=== PATIENT | female | born 1985 | race Caucasian/White ===

== ENCOUNTER 2017-01-08 17:13 | Emergency (ER) | payer OTHER ==
[2017-01-08 17:18] VITALS: BP 117/72; PULSE 100; TEMP 97.9; BMI 32.5
--- NOTE | 2017-01-08 19:04 | PDOC ---
History of Present Illness - General Chief Complaint: Vaginal Sxs Stated Complaint: FOREIGN OBJECT STUCK Time Seen by Provider: 01/08/17 18:31 History Source: Patient Exam Limitations: No Limitations - History of Present Illness Travel History: No Initial Comments: 01/08/17 18:49 retained tampon Timing/Duration: reports: constant Quality: reports: mild Past History - Travel Traveled outside of the country in the last 30 days: No Close contact w/someone who was outside of country & ill: No - Past Medical History Allergies/Adverse Reactions: Allergies Allergy/AdvReac Type Severity Reaction Status Date / Time No Known Allergies Allergy Verified 01/08/17 17:14 Home Medications: Ambulatory Orders Cephalexin [Keflex] 500 mg PO BID #14 capsule 11/01/15 Naproxen [Naprosyn -] 500 mg PO BID #14 tablet 11/01/15 HTN: Yes (border line) - Surgical History Abdominal Surgery: Yes - Reproductive History (#): 2 Para: 2 Therapeutic (s) & number: No Spontaneous : 0 - Psycho/Social/Smoking Cessation Hx Anxiety: No Suicidal Ideation: No Smoking Status: No Smoking History: Never smoked Have you smoked in the past 12 months: No Number of Cigarettes Smoked Daily: 0 Information on smoking cessation initiated: No Hx Alcohol Use: No Drug/Substance Use Hx: No Substance Use Type: None Review of Systems - Review of Systems Able to Perform ROS?: Yes Is the patient limited Albanian proficient: Yes Constitutional: Yes: See HPI. No: Symptoms Reported, Chills, Fever HEENTM: No: Symptoms Reported : Yes: See HPI. No: Symptoms Reported, Dysuria, Discharge Integumentary: No: Symptoms Reported All Other Systems: Reviewed and Negative *Physical Exam - Vital Signs Last Vital Signs Temp Pulse Resp BP Pulse Ox 97.9 F 100 H 18 117/72 100 01/08/17 17:15 01/08/17 17:15 01/08/17 17:15 01/08/17 17:15 01/08/17 17:15 - Physical Exam General Appearance: Yes: Nourished, Appropriately Dressed. No: Apparent Distress HEENT: positive: MARI, Normal ENT Inspection, TMs Normal, Pharynx Normal Neck: positive: Supple Respiratory/Chest: positive: Lungs Clear, Normal Breath Sounds Female Pelvic Exam: positive: normal external exam, other (to retain tampons noted in vault, after removal no evidence of abrasion, lesions, or discharge.) Gastrointestinal/Abdominal: positive: Soft. negative: Tender Extremity: positive: Normal Capillary Refill, Normal Inspection Integumentary: positive: Normal Color, Dry, Warm Neurologic: positive: assistant clinical nurse manager II-XII NML intact, Fully Oriented, Alert, Normal Mood/ Affect, Normal Response, Motor Strength 5/5 Progress Note - Progress Note Progress Note: Retain foreign body/tampons to vagina removed without incident Medical Decision Making - Medical Decision Making 01/08/17 19:06 Patient states was intoxicated yesterday and forgot to remove tampon before having sex with her boyfriend. Is unable to remove tampon tonight. Denies fever , abdominal pain or other problems. *DC/Admit/Observation/Transfer Diagnosis at time of Disposition: Retained vaginal foreign body Qualifiers: Encounter type: initial encounter Qualified Code(s): T19.2XXA - Foreign body in vulva and vagina, initial encounter - Discharge Dispostion Disposition: HOME Condition at time of disposition: Stable Admit: No - Patient Instructions Printed Discharge Instructions: DI for Foreign Body in Vagina-Adult - Post Discharge Activity Work/School Note: Back to Work
== END 2017-01-08 20:02 | disposition home or self-care (01) ==
LOC: JERFT 17:13
DX: T19.2XXA Foreign body in vulva and vagina, initial encounter (principal)
CPT/HCPCS: 99281-25

== ENCOUNTER 2019-07-09 16:47 | Emergency (ER) | payer OTHER ==
[2019-07-09 16:56] VITALS: TEMP 99; BMI 33.5
--- NOTE | 2019-07-09 16:57 | PDOC ---
Rapid Medical Evaluation Chief Complaint: Blood Pressure Problem Time Seen by Provider: 07/09/19 16:53 Medical Evaluation: Allergies Allergy/AdvReac Type Severity Reaction Status Date / Time No Known Allergies Allergy Verified 01/08/17 17:14 07/09/19 16:54 Patient c/o: 1 st trimester and went to clinic today and had a n elevated bp, hx of the same w/ prior , no complaints Patient on brief exam: 179/127, lcta, no pedal edema Patient ordered for: labs, urine, Patient to proceed to the ED Discharge Disposition - Diagnosis Elevated blood pressure affecting in first trimester, antepartum - Discharge Dispostion Disposition: HOME Condition at time of disposition: Improved - Prescriptions Prescriptions: Labetalol HCl 100 mg PO BID #10 tablet Pnv No.95/Ferrous Fum/Folic AC [ Vitamin Tablet] 1 each PO DAILY #30 tablet - Referrals - Patient Instructions Printed Discharge Instructions: DI for Pre-eclampsia Additional Instructions: Return to the ED if there is concern for new or worsening symptoms including significant headaches, fainting, vaginal bleeding It is important you followup with your Ob doctor this Sunday for repeat blood pressure. I have sent labetalol 100mg to take twice a day as well as vitamins. You may purchase any other over the counter vitamins if you would prefer. - Post Discharge Activity
--- NOTE | 2019-07-09 17:30 | PDOC ---
History of Present Illness - General Chief Complaint: Blood Pressure Problem Stated Complaint: HYPERTENSION/EVALUATION/+PREG TEST UNK WEEKS Time Seen by Provider: 07/09/19 16:53 - History of Present Illness Initial Comments: 07/09/19 17:30 HPI: 33 y/o F (ectopic s/p surgical prevention) LMP 05/01 presenting from Ob clinic for hypertension. Patient was on OCPs and had a positive home preg test last week and was establishing care today, however was found to be hypertensive and sent to ED for further eval. Patient only reports some morning nausea but denies emesis. Otherwise is without symptoms. Denies fever, chills, chest pain, palpitations, SOB, BLANCO, LH, dysuria. She reports not being on prenatals. She also reports alcohol use and motrin use in the psat 4 weeks. PMHx: as noted above ROS: as noted SHx: Denies tobacco use; occasional alcohol use; no rec drugs Allergies: NKDA ROS: GENERAL/CONSTITUTIONAL: No fever or chills. No weakness. HEAD, EYES, EARS, NOSE AND THROAT: No change in vision. No ear pain or discharge. No sore throat. CARDIOVASCULAR: No chest pain or shortness of breath RESPIRATORY: No cough, wheezing, or hemoptysis. GASTROINTESTINAL: +nausea; no vomiting, diarrhea or constipation. GENITOURINARY: No dysuria, frequency, or change in urination. MUSCULOSKELETAL: No joint or muscle swelling or pain. No neck or back pain. SKIN: No rash NEUROLOGIC: No headache, vertigo, loss of consciousness, or change in strength/ sensation. ENDOCRINE: No increased thirst. No abnormal weight change HEMATOLOGIC/LYMPHATIC: No anemia, easy bleeding, or history of blood clots. ALLERGIC/IMMUNOLOGIC: No hives or skin allergy. PE: GENERAL: Awake, alert, and fully oriented, no acute distress HEAD: No signs of trauma, normocephalic, atraumatic EYES: EOMI, sclera anicteric, conjunctiva clear ENT: Auricles normal inspection, hearing grossly normal, nares patent, oropharynx clear without exudates. Moist mucosa NECK: Normal ROM, no lymphadenopathy LUNGS: No increased work of breathing, symmetrical chest rise, clear to auscultation bilaterally, no wheezes, crackles or rhonchi HEART: Regular rate and rhythm, normal S1 and S2, no murmurs, peripheral pulses 2+ and equal bilaterally. ABDOMEN: Soft, nondistended, nontender, normoactive bowel sounds. No guarding, no rebound. No masses. No CVAT : external gentialia normal, no blood in the vaginal vault, cervical os closed , no CMT or adnexal ttp EXTREMITIES: Normal inspection, Normal range of motion, no edema. No clubbing or cyanosis. NEUROLOGICAL: Cranial nerves II through XII grossly intact. Normal speech, normal gait, no focal sensorimotor deficits SKIN: Warm, Dry, normal turgor, no rashes or lesions noted Past History - Past Medical History Allergies/Adverse Reactions: Allergies Allergy/AdvReac Type Severity Reaction Status Date / Time No Known Allergies Allergy Verified 07/09/19 16:56 Home Medications: Ambulatory Orders Cephalexin [Keflex] 500 mg PO BID #14 capsule 11/01/15 Naproxen [Naprosyn -] 500 mg PO BID #14 tablet 11/01/15 Labetalol HCl 100 mg PO BID #10 tablet 07/09/19 Pnv No.95/Ferrous Fum/Folic AC [ Vitamin Tablet] 1 each PO DAILY #30 tablet 07/09/19 COPD: No HTN: Yes (DURING LAST ) - Surgical History Abdominal Surgery: Yes - Reproductive History (#): 2 Para: 2 Therapeutic (s) & number: No Spontaneous : 0 - Psycho Social/Smoking Cessation Hx Smoking Status: No Smoking History: Never smoked Have you smoked in the past 12 months: No Number of Cigarettes Smoked Daily: 0 Information on smoking cessation initiated: No Hx Alcohol Use: No Drug/Substance Use Hx: No Substance Use Type: None *Physical Exam - Vital Signs Last Vital Signs Temp Pulse Resp BP Pulse Ox 99 F 93 H 19 179/127 H 100 07/09/19 16:53 07/09/19 16:53 07/09/19 16:53 07/09/19 16:53 07/09/19 16:53 ED Treatment Course - LABORATORY CBC & Chemistry Diagram: 07/09/19 17:32 07/09/19 17:32 Medical Decision Making - Medical Decision Making 07/09/19 19:21 33 y/o F (ectopic s/p surgical prevention) LMP 05/01 presenting from Ob clinic for asymptomatic HTN. BP 175/107 HR 100. PE unremarkable. -cbc, cmp, mg, phos, ua, ekg, tsh, beta quant, coags, t&s -tvus -labetalol, PO hydration 07/09/19 19:25 TVUS: IUP with FHR 170 at 11w4d beta quant 116,000 labs otherwise unremarkable Of note, patient notes preg was accidental; discussed options with patient and states she would like to talk with her partner and followup with repeat vitals: BP 142/104 HR 93 discussed results and return pcxns, patient understands instructions and is comfortable with DC Discharge - Discharge Information Problems reviewed: Yes Clinical Impression/Diagnosis: Elevated blood pressure affecting in first trimester, antepartum Condition: Improved Disposition: HOME - Follow up/Referral - Patient Discharge Instructions Patient Printed Discharge Instructions: DI for Pre-eclampsia Additional Instructions: Return to the ED if there is concern for new or worsening symptoms including significant headaches, fainting, vaginal bleeding It is important you followup with your Ob doctor this Sunday for repeat blood pressure. I have sent labetalol 100mg to take twice a day as well as vitamins. You may purchase any other over the counter vitamins if you would prefer. - Post Discharge Activity
[2019-07-09] MEDS ORDERED: LABETALOL HCL 100 MG TABLET (FP) PO ONE (17:33)
--- NOTE | 2019-07-09 17:40 | PDOC ---
Documentation entered by Jaime Galan SCRIBE, acting as scribe for Hali Frazier DO. Hali Frazier DO: This documentation has been prepared by the Angelia may Xhesika, SCRIBE, under my direction and personally reviewed by me in its entirety. I confirm that the documentation accurately reflects all work, treatment, procedures, and medical decision making performed by me. Attending Attestation - Resident Resident Name: Justino Castañeda - ED Attending Attestation I have performed the following: I have examined & evaluated the patient, The case was reviewed & discussed with the resident, I agree w/resident's findings & plan, Exceptions are as noted - HPI HPI: 07/09/19 17:41 The patient is a 33 year old female, A1, currently (unsure how many weeks) with a significant PMH of HTN who presents to the emergency department for elevated blood pressure. [facility], was started on control, however, after that she missed her period, started feeling sick, took a test at home last week which was positive. Pt notes she went back to [address] [place] [address] today to see how far along she was and was noted to be hypertensive. Pt states her LMP was end of april. Pt reports slight vaginal spotting yesterday. Patient notes she had similar symptoms with her prior pregnancies. The patient denies chest pain, shortness of breath, headache and dizziness. Denies fever, chills, cough, nausea, vomiting, diarrhea and constipation. Denies dysuria, frequency, urgency and hematuria. Allergies: NKDA RUBBER GRINDER: Dr. Bear Bourgeois - Physicial Exam PE: 07/09/19 17:41 GENERAL: Awake, alert, and fully oriented, in no acute distress LUNGS: Breath sounds equal, clear to auscultation bilaterally. No wheezes, and no crackles HEART: Regular rate and rhythm, normal S1 and S2, no murmurs, rubs or gallops ABDOMEN: Soft, nontender, normoactive bowel sounds. No guarding, no rebound. No masses EXTREMITIES: Normal range of motion, no edema. No clubbing or cyanosis. No cords, erythema, or tenderness NEUROLOGICAL: Cranial nerves II through XII grossly intact. Normal speech, normal gait SKIN: Warm, Dry, normal turgor, no rashes or lesions noted. - Medical Decision Making 07/09/19 17:36 I, Dr. Hali Frazier, DO, attest that this document has been prepared under my direction and personally reviewed by me in its entirety. I further attest, that it accurately reflects all work, treatment, procedures and medical decision -making performed by me. a/p: 33yo female with hx of HTN , hx of ectopic at age 21 with + home preg test despite oral contraceptive therapy last week (stopped her ocp last week) who went to [facility] today for preg eval and was told her BP was elevated -pt arrives hypertensive, but denies cp/sob/hector/blurred vision/parethesias, abd pain, n/v/d, weakness -pt states vaginal spotting yesterday, none today -pt states she was on BP meds in the past, but hasn't taken them since her last preg which was 8 years ago -will send labs, beta -will send for tvus for dates -will start labetalol -will monitor and reassess -pt is nontoxic in appearance 07/09/19 18:52 pt labs reviewed no protein in urine us shows 11 weeks gestation 07/09/19 19:16 beta >116,000 O+ 07/09/19 19:36 will rx labetalol pt will make appt for Sunday with her RUBBER GRINDER answered all questions pt stable for dc to home Heart Score/ECG Review - ECG Intrepretation Comment:: 07/09/19 17:40 sinus at 87, nl axis, nl interval, no acute st/t wave findings
[2019-07-09] MEDS ORDERED: LABETALOL HCL 100 MG TABLET (FP) ONE (17:43)
[2019-07-09 18:00] LABS: BASO % 0.3 % (0-2.0); EOS % 0.8 % (0-4.5); HEMATOCRIT 38.1 % (32.4-45.2); HEMOGLOBIN 12.6 GM/dL (10.7-15.3); LYMPH % 20.8 % (8-40); MCH 27.2 pg (25.7-33.7); MCHC 33.1 g/dl (32.0-36.0); MEAN CELL VOLUME 82.3 fl (80-96); MEAN PLT VOLUME 8.7 fl (7.5-11.1); MONO % 5.7 % (3.8-10.2); NEUT % 72.4 % (42.8-82.8); PLATELET COUNT 288 K/MM3 (134-434); RBC 4.63 M/mm3 (3.60-5.2); RDW 13.3 % (11.6-15.6)
[2019-07-09 18:06] LABS: PH,URINE 6.5 (5.0-8.0); URINE APPEARANCE CLEAR; URINE BILIRUBIN NEGATIVE (NEGATIVE); URINE COLOR YELLOW; URINE GLUCOSE (UA) NEGATIVE (NEGATIVE); URINE KETONE NEGATIVE (NEGATIVE); URINE LEUK ESTERASE NEGATIVE (NEGATIVE); URINE NITRITE NEGATIVE (NEGATIVE); URINE PROTEIN NEGATIVE (NEGATIVE); URINE UROBILINOGEN 0.2 mg/dL (0.2-1.0)
[2019-07-09 18:24] LABS: ALBUMIN 3.4 g/dl (3.4-5.0); BILIRUBIN,TOTAL 0.1 mg/dL (0.2-1); BLOOD UREA NITROGEN 6.5 mg/dL (7-18); CALCIUM 10.8 mg/dL (8.5-10.1); CREATININE 0.5 mg/dL (0.55-1.3); POTASSIUM 4.4 mmol/L (3.5-5.1); TOT PROT 7.1 g/dl (6.4-8.2)
[2019-07-09 18:37] LABS: INR 0.88 (0.83-1.09); PROTHROMBIN TIME (PATIENT) 10.4 SEC (9.7-13.0)
[2019-07-09 18:40] LABS: ACTIVATED PTT 31.9 SECONDS (25.2-36.5)
[2019-07-09 18:55] LABS: MAGNESIUM 1.9 mg/dL (1.8-2.4)
[2019-07-09 19:27] VITALS: BP 142/104; PULSE 93
--- NOTE | 2019-07-10 10:42 | EKG ---
Test Reason : Blood Pressure : / mmHG Vent. Rate : 087 BPM Atrial Rate : 087 BPM P-R Int : 174 ms QRS Dur : 084 ms QT Int : 336 ms P-R-T Axes : 034 036 031 degrees QTc Int : 404 ms NORMAL SINUS RHYTHM NORMAL ECG WHEN COMPARED WITH ECG OF 04-APR-2012 11:05, NO SIGNIFICANT CHANGE WAS FOUND Confirmed by YASMEEN SHETH MD ([id number]) on 07/10/2019 10:42:14 AM Referred By: Confirmed By:YASMEEN SHETH MD
== END 2019-07-09 19:50 | disposition home or self-care (01) ==
LOC: JER 16:47
DX: O26.891 Other specified pregnancy related conditions, first trimester (principal); O16.9 Unspecified maternal hypertension, unspecified trimester; Z3A.00 Weeks of gestation of pregnancy not specified
CPT/HCPCS: 36415; 76817-TC; 80053; 81003; 83735; 84443; 84702; 85025; 85610; 85730; 86850; 86900; 86901; 93005; 93010; 99284-25